=== PATIENT | female | born 1955 | race Caucasian/White ===

== ENCOUNTER → 2017-05-15 | Outpatient (CLI) | payer BC ==
[~2017-05-15] MED LIST: ADVIL200 MG PO; ALEVE220 MG PO; ARTIFICIAL TEAR15 ML OPHTH; ASPIRIN (CHILDR81 MG PO; CALCIUM 600 +1 EAC6 PO; METAMUCIL PACKE1 PKT PO; PROTONIX40 MG PO; THERAGRAN-M1 TAB PO; TYLENOL325 MG PO
== END | disposition disaster alternative care site (69) ==
LOC: GBCOE 13:40
DX: Z12.31 Encounter for screening mammogram for malignant neoplasm of breast (principal)
CPT/HCPCS: G0202